=== PATIENT | male | born 1960 | race Caucasian/White ===

== ENCOUNTER → 2018-02-15 09:06 | Outpatient (CLI) | payer OTHER, SELFPAY ==
[2018-02-15 10:48] LABS: Add Manual Diff / Slide Review NO; Basophils Percent Auto 0.9 % (0-2); Eosinophils Percent Auto 2.1 % (2-4); Hematocrit 45.4 % (41-53); Hemoglobin 15.6 g/dL (13.5-17.5); Lymphocytes Percent Auto 27.1 % (25-40); Mean Corpuscular HGB Conc 34.4 % (30-36); Mean Corpuscular Hemoglobin 32.5 PG (26-34); Mean Corpuscular Volume 94.6 fL (80-100); Monocytes Percent Auto 6.3 % (3-14); Neutrophils Absolute Auto 4500 /uL (3000-5900); Neutrophils Percent Auto 63.6 % (50-75); Platelet Count 225 X10^3/uL (150-400); Red Cell Distribution Width 13.1 % (11.6-14.8); White Blood Cell Count 7.1 X10^3/uL (4.5-11.0)
[2018-02-15 10:52] LABS: Cholesterol 192 mg/dL (140-199); HDL Cholesterol 77 mg/dL (40-60); LDL Cholesterol Calculated 99 mg/dL (<100); Triglycerides 81 mg/dL (35-150)
== END ==
PROVIDERS: PCP Physician Assistant; Visit Provider Physician Assistant
DX: E78.2 Mixed hyperlipidemia (principal); R03.0 Elevated blood-pressure reading, without diagnosis of hypertension; E29.1 Testicular hypofunction
CPT/HCPCS: 36415; 80061; 84403; 85025

== ENCOUNTER → 2018-10-24 15:23 | Outpatient (CLI) | payer OTHER, SELFPAY | PROVIDERS: PCP Physician Assistant; Visit Provider Physician Assistant | DX: E29.1 Testicular hypofunction (principal) | CPT/HCPCS: 36415; 84403 ==

== ENCOUNTER → 2019-06-22 08:26 | Outpatient (CLI) | payer OTHER, SELFPAY ==
[2019-06-22 09:00] LABS: Add Manual Diff / Slide Review NO; Basophils Absolute Auto 100 /uL (0-100); Eosinophils Absolute Auto 300 /uL (0-450); Eosinophils Percent Auto 4.6 % (2-4); Hematocrit 45.6 % (41-53); Hemoglobin 15.7 g/dL (13.5-17.5); Lymphocytes Absolute Auto 2000 /uL (1100-4500); Lymphocytes Percent Auto 29.8 % (25-40); Mean Corpuscular HGB Conc 34.6 % (30-36); Mean Corpuscular Hemoglobin 32.3 PG (26-34); Mean Corpuscular Volume 93.6 fL (80-100); Monocytes Absolute Auto 600 /uL (0-900); Monocytes Percent Auto 8.3 % (3-14); Neutrophils Absolute Auto 3800 /uL (1500-7000); Neutrophils Percent Auto 56.3 % (50-75); Platelet Count 205 X10^3/uL (150-400); Red Blood Cell Count 4.87 X10^6/uL (4.5-5.9); Red Cell Distribution Width 13.2 % (11.6-14.8); White Blood Cell Count 6.8 X10^3/uL (4.5-11.0)
[2019-06-22 10:23] LABS: Alanine Aminotransferase 42 IU/L (<50); Albumin 4.5 g/dL (3.5-5.0); Albumin Globulin Ratio 1.5 (1.0-2.8); Alkaline Phosphatase 71 U/L (38-126); Aspartate Aminotransferase 43 IU/L (17-59); BUN Creatinine Ratio 17.5 (6-22); Blood Urea Nitrogen 14 mg/dL (9-20); Calcium 9.6 mg/dL (8.4-10.2); Carbon Dioxide 24 mmol/L (22-32); Chloride 107 mmol/L (98-107); Cholesterol 230 mg/dL (140-199); Estimated Glomerular Filt Rate > 60.0 mL/min (>60); Globulin 3.1 g/dL (1.7-4.1); Glucose 103 mg/dL (70-100); HDL Cholesterol 70 mg/dL (40-60); HEMOLYSIS < 15 (0-50); LDL Cholesterol Calculated 132 mg/dL (<100); Potassium 3.8 mmol/L (3.4-5.1); Sodium 140 mmol/L (137-145); Total Protein 7.6 g/dL (6.3-8.2); Triglycerides 139 mg/dL (35-150)
== END ==
PROVIDERS: PCP Physician Assistant; Visit Provider Physician Assistant
DX: E78.2 Mixed hyperlipidemia (principal); G89.29 Other chronic pain
CPT/HCPCS: 36415; 80053; 80061; 85025

== ENCOUNTER → 2020-10-10 08:29 | Outpatient (CLI) | payer OTHER, SELFPAY ==
[2020-10-10 10:13] LABS: BUN Creatinine Ratio 25.7 (6-22); Blood Urea Nitrogen 18 mg/dL (9-20); Calcium 9.4 mg/dL (8.4-10.2); Carbon Dioxide 22 mmol/L (22-32); Chloride 108 mmol/L (98-107); Cholesterol 220 mg/dL (140-199); Estimated Glomerular Filt Rate > 60.0 mL/min (>60); Glucose 99 mg/dL (70-100); HDL Cholesterol 79 mg/dL (40-60); HEMOLYSIS < 15 (0-50); LDL Cholesterol Calculated 120 mg/dL (<100); Potassium 4.1 mmol/L (3.4-5.1); Sodium 139 mmol/L (137-145); Triglycerides 107 mg/dL (35-150)
[2020-10-16 06:36] LABS: Percent Free Testosterone 4.01 % (1.50-4.20); Testosterone Free 20.88 ng/dL (5.00-21.00); Testosterone Total 520.8 ng/dL (264.0-916.0)
== END ==
PROVIDERS: PCP Physician Assistant; Referring Provider Physician Assistant; Visit Provider Physician Assistant
DX: E78.2 Mixed hyperlipidemia (principal); E29.1 Testicular hypofunction
CPT/HCPCS: 36415; 80048; 80061; 84402; 84403

== ENCOUNTER → 2023-05-15 07:32 | Outpatient (CLI) | payer OTHER, SELFPAY | PROVIDERS: PCP Physician Assistant; Visit Provider Nurse Practitioner Family | DX: J02.9 Acute pharyngitis, unspecified (principal) | CPT/HCPCS: 87070 ==

== ENCOUNTER 2025-01-02 03:47 | Emergency (ER) | payer OTHER, SELFPAY ==
[2025-01-02] VITALS (22 sets, daily range): BP systolic 133–178; BP diastolic 79–112; PULSE 54–94; RESP 12–27; TEMP 36.9; O2SAT 92–96; BMI 29.9
--- NOTE | 2025-01-02 04:03 | DI.RAD.S_ITS ---
PROCEDURE: XR CHEST 1V INDICATIONS: Chest Pain, intermittent episodes TECHNIQUE: One view of the chest was acquired. COMPARISON: None. FINDINGS AND IMPRESSION: Low lung volumes. No consolidation or pleural effusion on this single view study. Questionable left basal atelectasis versus early airspace disease Cardiomegaly. Degenerative osseous changes. Agree with preliminary report. Dictated by: Augustin Figueroa M.D. on 01/02/2025 at 7:26 Approved by: Augustin Figueroa M.D. on 01/02/2025 at 7:27
[2025-01-02] MEDS: ASPIRIN 81 MG CHEW TAB 324 MG PO (04:10)
--- NOTE | 2025-01-02 04:10 | EKG_ITS ---
[facility] [address] [place] [address] Test Date: 2025-01-02 Pat Name: Burt Patino Department: Room: Gender: Male [employer]er: DIONNE : 1960 Requested By: Order Number: [id number] Reading MD: Balwinder Brown Measurements Intervals [place] Rate: 80 P: 53 GA: 204 QRS: -56 QRSD: 112 T: -32 QT: 388 QTc: 447 Interpretive Statements Normal sinus rhythm with sinus arrhythmia Left anterior fascicular block Minimal voltage criteria for LVH, may be normal variant ( R in aVL ) Nonspecific ST and T wave abnormality Electronically Signed On 01-02-2025 18:05:39 PDT by Balwinder Brown
[2025-01-02] MEDS: NITROGLYCERIN 0.4 MG SL TAB SL (04:12)
[2025-01-02 04:31] LABS: Add Manual Diff / Slide Review NO; Hematocrit 47.2 % (41-53); Hemoglobin 16.1 g/dL (13.5-17.5); Lymphocytes Absolute Auto 2600 /uL (1100-4500); Mean Corpuscular HGB Conc 34.1 % (30-36); Mean Corpuscular Hemoglobin 34.0 PG (26-34); Mean Corpuscular Volume 99.7 fL (80-100); Platelet Count 209 X10^3/uL (150-400)
[2025-01-02 04:42] LABS: INR 1.0 (0.9-1.3); Prothrombin Time 10.9 SECONDS (9.4-12.5)
[2025-01-02 04:45] LABS: PTT Partial Thromboplastin Tim 29 SECONDS (25.1-36.5)
[2025-01-02 04:49] LABS: Alanine Aminotransferase 69 IU/L (<50); Albumin 4.4 g/dL (3.5-5.0); Albumin Globulin Ratio 1.3 (1.0-2.8); Alkaline Phosphatase 94 U/L (38-126); Blood Urea Nitrogen 17 mg/dL (9-20); Calcium 9.4 mg/dL (8.4-10.2); Carbon Dioxide 22 mmol/L (22-32); Chloride 105 mmol/L (98-107); Creatine Kinase 93 U/L (55-170); Estimated Glomerular Filt Rate > 60 mL/min (>60); Globulin 3.4 g/dL (1.7-4.1); Glucose 106 mg/dL (70-99); HEMOLYSIS < 15 (0-50); Lipase 114 U/L (23-300); Magnesium 1.7 mg/dL (1.6-2.3); Potassium 3.7 mmol/L (3.4-5.1); Sodium 138 mmol/L (137-145); Total Protein 7.8 g/dL (6.3-8.2)
[2025-01-02 05:01] LABS: NT-proBNP (BNP-Adult 18+) 36 pg/mL (<125); Troponin I 0.103 ng/mL (0.01-0.034); Troponin I 0.104 ng/mL (0.01-0.034)
[2025-01-02 05:07] LABS: Procalcitonin 0.085 ng/mL (<0.5)
[2025-01-02] MEDS: HEPARIN 5,000 UNIT/ML VIAL 5000 UNIT IV (05:30)
[2025-01-02] MEDS: HEPARIN DRIP 25,000 UNIT/500 ML IV.SOLN 20 UNIT IV (05:31)
--- NOTE | 2025-01-02 06:09 | EKG_ITS ---
[facility] [address] [place] [address] Test Date: 2025-01-02 Pat Name: Burt Patino Department: [facility] Room: Gender: Male Change Release Manager: GORDON : 1960 Requested By: Order Number: [id number] Reading MD: Balwinder Brown Measurements Intervals [place] Rate: 68 P: 51 MT: 188 QRS: -48 QRSD: 110 T: -23 QT: 402 QTc: 427 Interpretive Statements Sinus rhythm with premature supraventricular complexes Left anterior fascicular block Nonspecific ST abnormality Electronically Signed On 01-02-2025 18:05:46 PDT by Balwinder Brown
--- NOTE | 2025-01-02 06:44 | ED.CHESTPAIN ---
HPI - Chest Pain General Chief Complaint: Chest Pain Stated Complaint: chest pain Time Seen by Provider: 01/02/25 04:10 Source: patient Mode of arrival: Ambulatory Limitations: no limitations History of Present Illness HPI narrative: Burt Patino is a pleasant 64-year-old man with a history of dyslipidemia comes to the ER because of intermittent chest pain for the last 3 days which has been worsening and becoming more frequent. He states that he awoke this morning at around 3:30 a.m. with severe left-sided chest pain radiating up to his left shoulder. He states this is accompanied by diaphoresis. He denies any shortness of breath, palpitations, nausea, vomiting. He denies any recent illness or ill contacts. He denies any history of CVA or CA. no other concerns or complaints at this time. Related Data Home Medications ?Medication ?Instructions ?Recorded ?Confirmed cyclobenzaprine 5 mg tablet 5 mg PO HS ##0 03/03/12 05/15/23 rosuvastatin 20 mg tablet (Crestor) 20 mg PO QDAY ##0 03/03/12 05/15/23 gabapentin 100 mg capsule 100 - 200 mg PO BID 01/02/25 01/02/25 hydrocodone 5 mg-acetaminophen 325 1 tab PO Q6H PRN severe pain 01/02/25 01/02/25 mg tablet rosuvastatin 40 mg tablet 40 mg PO DAILY 01/02/25 01/02/25 testosterone cypionate 200 mg/mL 200 mg IM Q7D 01/02/25 01/02/25 intramuscular oil Previous Rx's ?Medication ?Instructions ?Recorded prednisone 20 mg tablet 40 mg (2 x 20 mg) PO DAILY #6 tabs 05/15/23 Allergies Allergy/AdvReac Type Severity Reaction Status Date / Time codeine AdvReac Mild Headache Verified 01/02/25 03:56 Patient History Smoking Status: Never smoker Exam Initial Vital Signs Initial Vital Signs: Vital Signs Temperature 98.4 F 01/02/25 03:58 Pulse Rate 85 01/02/25 03:58 Respiratory Rate 18 01/02/25 03:58 Blood Pressure 178/112 H 01/02/25 03:58 Pulse Oximetry 94 01/02/25 03:58 Oxygen Delivery Method Room Air 01/02/25 03:58 Const General: acute distress, diaphoretic and ill appearing Nutritional Appearance: obese HENMT Head: normal to inspection, normocephalic and atraumatic Eyes General: Yes appearance normal, both eyes and all related structures Resp Effort & Inspection: normal respiratory effort Auscultation: clear to auscultation bilaterally Cardio Rate: regular rate Rhythm: regular rhythm Heart Sounds: S1 normal and S2 normal GI Palpation: soft and No tender Neuro General: patient alert, patient awake, patient oriented x3, tone normal, moves all extremities, normal light touch, pain and propioception, no focal motor deficits and CN's II-XI intact bilaterally Course Course Course Narrative: The patient was seen and examined by myself upon arrival in his room. His initial presentation was extremely concerning for acute CA given his diaphoresis, chest pain, and resolution of chest pain with 1 dose of nitro. His chest pain did not return after the 1st dose of nitro. His EKG showed only nonspecific ST changes. Subsequently, his troponin came back elevated and I immediately ordered him a heparin drip and began transfer process for him to get cardiology consult. He was accepted by Dr. Neumann from [facility]. He already had a bed assignment and only transport was pending which was scheduled for 1 hour after the end of my shift. Orders Ordered: ED Orders 01/02/25 04:03 XR chest 1V Stat EKG-12 Lead Stat 01/02/25 04:11 Complete Blood Count AUTO DIFF Stat Comprehensive Metabolic Panel Stat D Dimer Stat Lipase Stat Magnesium Stat NT-proBNP (BNP-Adult 18+) Stat PTT Partial Thromboplastin Ricky Stat Procalcitonin Stat Prothrombin Time INR Stat Trop I [Troponin I] Stat Troponin & CK Cardiac Panel Stat 01/02/25 06:01 EKG-12 Lead Stat Heparin Sodium/Dextrose (Heparin Drip) 25,000 unit in 500 mls @ 20 mls/hr IV CONT MIHIR; Protocol Last Admin: 01/02/25 05:31 Dose: 1,000 unit/hr, 20 mls/hr Documented By: KENISHA Co-signed By: Discontinued Medications Aspirin (Aspirin 81 Mg Chew Tab) 324 mg PO NOW ONE Stop: 01/02/25 04:04 Last Admin: 01/02/25 04:10 Dose: 324 mg Documented By: Heparin Sodium (Porcine) (Heparin 5,000 Unit/Ml Vial) 5,000 unit 50 unit/kg (5000 unit) IV NOW ONE Stop: 01/02/25 05:14 Last Admin: 01/02/25 05:30 Dose: 5,000 unit Documented By: HNG Heparin Sodium/Dextrose (Heparin Drip) 25,000 unit in 500 mls @ 23.405 mls/hr IV CONT MIHIR; Protocol Last Admin: 01/02/25 06:31 Dose: Not Given Documented By: AB Nitroglycerin (Nitroglycerin 0.4 Mg Sl Tab) 0.4 mg SL NOW ONE Stop: 01/02/25 04:28 Last Admin: 01/02/25 04:12 Dose: 0.4 mg Documented By: AB Vital Signs Vital signs: Vital Signs - 8 hr 01/02/25 03:58 01/02/25 04:12 01/02/25 04:14 Temperature 98.4 F Pulse Rate 85 94 H 80 Respiratory Rate 18 23 Blood Pressure 178/112 H 178/112 H Pulse Oximetry 94 96 Oxygen Delivery Method Room Air 01/02/25 04:20 01/02/25 04:20 01/02/25 04:25 Temperature Pulse Rate 83 79 Respiratory Rate 23 27 H Blood Pressure 138/86 Pulse Oximetry 92 93 Oxygen Delivery Method Room Air 01/02/25 04:30 01/02/25 04:30 01/02/25 04:45 Temperature Pulse Rate 63 Respiratory Rate 15 Blood Pressure 135/84 133/79 Pulse Oximetry 94 Oxygen Delivery Method 01/02/25 04:45 01/02/25 05:00 01/02/25 05:00 Temperature Pulse Rate 54 L 54 L Respiratory Rate 16 12 Blood Pressure 139/84 Pulse Oximetry 94 94 Oxygen Delivery Method 01/02/25 05:15 01/02/25 05:15 01/02/25 05:30 Temperature Pulse Rate 68 68 Respiratory Rate 22 17 Blood Pressure 165/100 H Pulse Oximetry 95 95 Oxygen Delivery Method 01/02/25 05:30 01/02/25 05:45 01/02/25 05:45 Temperature Pulse Rate 73 Respiratory Rate 20 Blood Pressure 153/95 H 143/97 H Pulse Oximetry 96 Oxygen Delivery Method 01/02/25 06:00 01/02/25 06:00 01/02/25 06:15 Temperature Pulse Rate 69 Respiratory Rate 14 Blood Pressure 153/98 H 157/90 H Pulse Oximetry 94 Oxygen Delivery Method 01/02/25 06:15 01/02/25 06:30 01/02/25 06:30 Temperature Pulse Rate 64 72 Respiratory Rate 13 14 Blood Pressure 163/98 H Pulse Oximetry 95 92 Oxygen Delivery Method Room Air MDM - Chest Pain Differential Diagnosis Differential diagnosis: Likely fracture of rib, pneumothorax, stable angina, unstable angina pectoris, atypical chest pain, st elevation myocardial infarction, costochondritis, chest pain and biliary colic Lab Data 01/02/25 04:11 01/02/25 04:11 Labs: Lab Results 01/02/25 01/02/25 Range/Units 04:11 04:11 WBC 9.1 (4.5-11.0) X10^3/uL RBC 4.74 (4.5-5.9) X10^6/uL Hgb 16.1 (13.5-17.5) g/dL Hct 47.2 (41-53) % MCV 99.7 (80-100) fL MCH 34.0 (26-34) PG MCHC 34.1 (30-36) % RDW 13.9 (11.6-14.8) % Plt Count 209 (150-400) X10^3/uL Neut % (Auto) 57.9 (50-75) % Lymph % (Auto) 28.1 (25-40) % [place] % (Auto) 10.2 (3-14) % Eos % (Auto) 3.0 (2-4) % Baso % (Auto) 0.8 (0-2) % Neut # (Auto) 5300 (8829-3417) /uL Lymph # (Auto) 2600 (2812-5421) /uL [place] # (Auto) 900 (0-900) /uL Eos # (Auto) 300 (0-450) /uL Baso # (Auto) 100 (0-100) /uL PT 10.9 (9.4-12.5) SECONDS INR 1.0 (0.9-1.3) APTT 29 (25.1-36.5) SECONDS D-Dimer < 215 (<500) ng/ml Sodium 138 (137-145) mmol/L Potassium 3.7 (3.4-5.1) mmol/L Chloride 105 (98-107) mmol/L Carbon Dioxide 22 (22-32) mmol/L BUN 17 (9-20) mg/dL Creatinine 0.75 (0.66-1.25) mg/dL Estimated GFR > 60 (>60) mL/min BUN/Creatinine Ratio 22.7 H (6-22) Glucose 106 H (70-99) mg/dL Calcium 9.4 (8.4-10.2) mg/dL Magnesium 1.7 (1.6-2.3) mg/dL Total Bilirubin 0.7 (0.2-1.3) mg/dL AST 62 H (17-59) IU/L ALT 69 H (<50) IU/L Alkaline Phosphatase 94 (38-126) U/L Total Creatine Kinase 93 (55-170) U/L Troponin I 0.104 H 0.103 H (0.01-0.034) ng/mL NT-Pro-B Natriuret Pep 36 (<125) pg/mL Total Protein 7.8 (6.3-8.2) g/dL Albumin 4.4 (3.5-5.0) g/dL Globulin 3.4 (1.7-4.1) g/dL Albumin/Globulin Ratio 1.3 (1.0-2.8) Lipase 114 (23-300) U/L Procalcitonin 0.085 (<0.5) ng/mL ECG Data Interpretation: Normal sinus rhythm LAFB nonspecific ST and T-wave changes. Repeat EKG 2 hours after the 1st was normal sinus rhythm with PVCs LAFB nonspecific ST abnormality and rate of 68. Discharge Plan Departure Patient Disposition: [facility] Clinical Impression: Non-ST elevation CA (NSTEMI) Prescriptions: No Action prednisone 20 mg tablet 40 mg PO DAILY Qty: 6 0RF rosuvastatin [Crestor] 20 MG tablet 20 mg PO QDAY Qty: 0 cyclobenzaprine 5 MG tablet 5 mg PO HS Qty: 0 hydrocodone-acetaminophen 5-325 mg tablet 1 tab PO Q6H PRN (Reason: severe pain) gabapentin 100 mg capsule 100 - 200 mg PO BID testosterone cypionate 200 mg/mL oil 200 mg IM Q7D rosuvastatin 40 mg tablet 40 mg PO DAILY Referrals: Tracey Luna PA-C [Primary Care Provider, Internal Medicine]
--- NOTE | 2025-01-02 08:00 | PC.NURSE ---
Pt reports improvement in symptoms after nitro. denies headache pedro.
== END 2025-01-02 08:15 | disposition short-term general hospital (02) ==
PROVIDERS: Emergency Provider Emergency Medicine; PCP Physician Assistant
DX: I21.4 Non-ST elevation (NSTEMI) myocardial infarction (principal)
CPT/HCPCS: 36415; 71045; 80053; 82550; 83690; 83735; 83880; 84145; 84484; 85025; 85379; 85610; 85730; 93005; 96365; 96366; 96375; 99284; J1644